=== PATIENT | male | born 1990 | race Caucasian/White ===

== ENCOUNTER 2021-10-26 10:24 | Emergency (ER) | payer OTHER ==
[2021-10-26 10:55] LABS: BASOPHILS % (AUTO) 0.5 %; HGB - HEMOGLOBIN 16.2 g/dL (14.0-18.0); LYMPHOCYTES # (AUTO) 2.2 10^3/uL (1.5-3.5); MEAN CORPUSCULAR HEMOGLOBIN 28.9 pg (27.0-31.0); MEAN CORPUSCULAR HGB CONC 35.2 g/dL (32.0-36.0); MEAN CORPUSCULAR VOLUME 82.1 fL (80.0-94.0); MEAN PLATELET VOLUME 10.8 fL (7.4-11.4); MONOCYTES # (AUTO) 0.5 10^3/uL (0.0-1.0); NEUTROPHILS # (AUTO) 5.2 10^3/uL (1.5-6.6); PLT - PLATELET COUNT 197 10^3/uL (130-450); RED CELL DISTRIBUTION WIDTH 12.9 % (12.0-15.0)
[2021-10-26 11:05] LABS: ALBUMIN 4.7 g/dL (3.2-5.5); ALBUMIN/GLOBULIN RATIO 1.3 (1.0-2.2); BILIRUBIN,TOTAL 0.7 mg/dL (0.2-1.0); CALCIUM 9.5 mg/dL (8.5-10.3); TOTAL PROTEIN 8.4 g/dL (6.7-8.2)
--- NOTE | 2021-10-26 11:05 | XRAY Report ---
PROCEDURE: Chest 1 View X-Ray INDICATIONS: Chest pain TECHNIQUE: One view of the chest was acquired. COMPARISON: None FINDINGS: Surgical changes and devices: None. Lungs and pleura: No pleural effusions or pneumothorax. Lungs are clear. Mediastinum: Mediastinal contours appear normal. Heart size is normal. Bones and chest wall: No suspicious bony lesions. Overlying soft tissues appear unremarkable. IMPRESSION: No acute cardiopulmonary disease. Reviewed by: Debora Iraheta MD on 10/26/2021 11:03 AM PDT Approved by: Debora Iraheta MD on 10/26/2021 11:03 AM PDT Station ID: [id number]
--- NOTE | 2021-10-26 11:53 | ED Physician Documentation ---
PD HPI DYSPNEA - Stated complaint Stated Complaint: CHEST PRESSURE/SOA - Chief complaint Chief Complaint: Cardiac - History obtained from History obtained from: Patient - History of Present Illness Timing - onset: How many days ago (some chest pressure and feeling dyspnea intermittently for few days, increased this morning getting ready for work.) Timing - onset during: Light activity Timing - duration: Hours (was more intense with pressure and feeling dyspnea and eased considerably but still some chest tightness/pressure here in ER.), Days (has had similar intermittent the past couple of days. No URI symptoms. No cough.) Timing - details: Gradual onset, Still present Inciting event(s): No: URI, Exercise, Immobilization/travel Improved by: No: Rest Associated symptoms: Chest pain / discomfort. No: Fever, Cough, Wheezing, Palpitations, Bilateral edema Similar symptoms before: Has not had sx before Recently seen: Not recently seen Review of Systems Constitutional: denies: Fever, Chills Nose: denies: Rhinorrhea / runny nose, Congestion Throat: denies: Sore throat Respiratory: denies: Cough Musculoskeletal: denies: Extremity swelling PD PAST MEDICAL HISTORY - Past Medical History Past Medical History: Yes Cardiovascular: None Respiratory: None Neuro: Migraines Endocrine/Autoimmune: None GI: None : None HEENT: None Psych: None Musculoskeletal: None Derm: None - Past Surgical History Past Surgical History: Yes HEENT: Tonsil/Adenoidectomy - Present Medications Home Medications: Ambulatory Orders Medication Instructions Recorded Confirmed Naproxen 500 mg PO BID #20 tab 10/26/21 SUMAtriptan [Imitrex] 25 mg PO DAILY PRN 10/26/21 10/26/21 - Allergies Allergies/Adverse Reactions: Allergies Allergy/AdvReac Type Severity Reaction Status Date / Time No Known Drug Allergies Allergy Verified 10/26/21 10:40 - Social History Does the pt smoke?: No Smoking Status: Never smoker Does the pt drink ETOH?: Yes Does the pt have substance abuse?: No - Immunizations Immunizations are current?: Yes PD ED PE NORMAL - Vitals Vital signs reviewed: Yes - General General: Alert and oriented X 3, No acute distress, Well developed/nourished - HEENT HEENT: Moist mucous membranes, Pharynx benign - Neck Neck: Supple, no meningeal sign, No adenopathy - Cardiac Cardiac: RRR, No murmur, No rub - Respiratory Respiratory: No respiratory distress, Clear bilaterally - Abdomen Abdomen: Soft, Non tender, No organomegaly - Derm Derm: Normal color, Warm and dry - Extremities Extremities: No edema, No calf tenderness / cord - Neuro Neuro: Alert and oriented X 3, No motor deficit, Normal speech Results - Vitals Vitals: Vital Signs - 24 hr 10/26/21 10/26/21 10/26/21 10:41 11:26 11:31 Temperature 37.4 C Heart Rate 96 83 84 Respiratory 24 15 Rate Blood Pressure 146/88 H 132/84 H O2 Saturation 97 97 97 10/26/21 10/26/21 10/26/21 12:00 12:26 12:30 Temperature Heart Rate 85 93 96 Respiratory 19 16 16 Rate Blood Pressure 138/95 H 144/96 H O2 Saturation 95 95 10/26/21 10/26/21 13:00 13:49 Temperature 36.6 C Heart Rate 83 83 Respiratory 28 H 21 Rate Blood Pressure 141/99 H 130/96 H O2 Saturation 94 97 Oxygen O2 Source Room air - EKG (time done) 10:35 Rate: Rate (enter#) (90) Rhythm: NSR [place]: Normal Intervals: Normal OR QRS: Normal Ischemia: Normal ST segments. No: ST elevation c/w ischemia, ST depression - Labs Labs: Laboratory Tests 10/26/21 10/26/21 10/26/21 10:47 10:47 10:47 WBC 8.0 RBC 5.60 Hgb 16.2 Hct 46.0 MCV 82.1 MCH 28.9 MCHC 35.2 RDW 12.9 Plt Count 197 MPV 10.8 Neut # (Auto) 5.2 Lymph # (Auto) 2.2 [place] # (Auto) 0.5 Eos # (Auto) 0.0 Baso # (Auto) 0.0 Absolute Nucleated RBC 0.00 Nucleated RBC % 0.0 Sodium 138 Potassium 4.0 Chloride 104 Carbon Dioxide 26 Anion Gap 8.0 BUN 10 Creatinine 1.0 Estimated GFR (MDRD) 87 L Glucose 100 Calcium 9.5 Total Bilirubin 0.7 AST 28 ALT 51 Alkaline Phosphatase 58 Troponin I High Sens 9.8 Total Protein 8.4 H Albumin 4.7 Globulin 3.7 Albumin/Globulin Ratio 1.3 Lipase 34 10/26/21 12:12 WBC RBC Hgb Hct MCV MCH MCHC RDW Plt Count MPV Neut # (Auto) Lymph # (Auto) [place] # (Auto) Eos # (Auto) Baso # (Auto) Absolute Nucleated RBC Nucleated RBC % Sodium Potassium Chloride Carbon Dioxide Anion Gap BUN Creatinine Estimated GFR (MDRD) Glucose Calcium Total Bilirubin AST ALT Alkaline Phosphatase Troponin I High Sens 8.8 Total Protein Albumin Globulin Albumin/Globulin Ratio Lipase - Rads (name of study) chest xray Radiology: Prelim report reviewed (no acute process), See rad report PD MEDICAL DECISION MAKING - ED course Complexity details: reviewed results, considered differential (unclear cause of symptoms. labs/ECG/CXR normal. PERC negative. Not improved with Mylanta nor Albuterol MDI. Presume possible inflammatory. ECG normal and no rub but could be pericardial. ), d/w patient Departure - Departure Disposition: 01 Home, Self Care Clinical Impression: Tightness in chest Condition: Stable Record reviewed to determine appropriate education?: Yes Instructions: ED Chest Pain Atypical Unkn Cause Follow-Up: KRISTOPHER Acuna [Provider Group] Prescriptions: Naproxen 500 mg PO BID #20 tab Comments: Your EKG, chest x-ray, blood tests are normal so no signs of heart failure, heart attack, pneumonia, fluid around the lungs, collapsed lung. He also did not have improvement with antacids so not sounding like heartburn/reflux. No change with the albuterol inhaler so less likely reactive airway disease or bronchial irritation. At this point not clear on the cause. Presume some inflammation into the chest area/chest wall. I would suggest anti-inflammatory such as naproxen or ibuprofen 2-3 times daily for the next 5 or 6 days. I did send a prescription to the [facility] for naproxen. Rest today and tomorrow off work and see how your symptoms are. I would anticipate improvement through the day and into tomorrow. Follow-up with the primary care if not improved over the next few days and return to the ER if worsening or other symptoms. This may be the beginning symptoms of a viral type illness so if you were to develop some chills fevers cough or sore throat in the next couple of days then that would actually make sense on the symptoms today and would not necessarily need to follow-up per se. Forms: Activity restrictions Discharge Date/Time: 10/26/21 13:55
[2021-10-26] MEDS ORDERED: ALBUTEROL 1 PUFF INH STA (12:06)
[2021-10-26] MEDS ORDERED: MAG HYDROX/AL HYDROX/SIMETH 30 ML UDC PO STA (12:06)
[2021-10-26] MEDS ORDERED: KETOROLAC 15 MG/ML VIAL IVP STA (12:36)
[2021-10-26 13:50] VITALS: BP 130/96
== END 2021-10-26 13:55 | disposition home or self-care (01) ==
LOC: ED 10:24
DX: R07.9 Chest pain, unspecified (principal)
CPT/HCPCS: 36415; 71045; 80053; 83690; 84484; 85025; 93005; 94640; 94664; 96374; 99283; 99284; A9270

== ENCOUNTER 2022-10-02 09:26 | Outpatient (CLI) | payer OTHER ==
--- NOTE | 2022-10-04 08:38 | MRI Report ---
PROCEDURE: LUMBAR SPINE WO INDICATIONS: RT LE WEAKNESS TECHNIQUE: Noncontrast sagittal T1 spin echo and T2 fast echo, sagittal STIR, axial T1 and T2 fast spin echo thr ough the lumbar spine. In cases with scoliosis, additional coronal T2 fast spin echo may be performe d. COMPARISON: None. FINDINGS: Image quality: Excellent. Alignment and Curvature: There is normal bony alignment. Bone Marrow: Marrow is of normal overall signal. No acute vertebral body compression fractures. Spinal Cord: Conus medullaris terminates at the L1-L2 level. Visualized cord demonstrates normal si gnal and size. Paraspinous Soft Tissues: No paravertebral masses. T12-L1: Normal in appearance. L1-L2: Normal in appearance. L2-L3: Normal in appearance. L3-L4: Mild facet hypertrophy. No canal stenosis or foraminal stenosis. L4-L5: Mild disc bulge. Facet hypertrophy. No canal stenosis or foraminal stenosis. L5-S1: Posterior annulus tear. Disc bulge. Facet hypertrophy. No canal stenosis or foraminal stenos is. IMPRESSION: 1. No canal stenosis or foraminal stenosis. 2. Multilevel facet arthropathy. 3. Disc bulge at L4-L5, annulus tear plus disc bulge at L5-S1. Reviewed by: Reid Marin MD on 10/04/2022 8:36 AM PDT Approved by: Reid Marin MD on 10/04/2022 8:36 AM PDT Station ID: [id number]
--- NOTE | 2022-10-04 12:10 | MRI Report ---
PROCEDURE: HIP WO - RT INDICATIONS: RT LE WEAKNESS TECHNIQUE: Noncontrast coronal T1 spin echo and STIR through the bony pelvis. Coronal and axial T2 fast spin ec ho with fat saturation, sagittal T1 spin echo, and oblique axial T2 fast spin echo with fat saturatio n through the hip. COMPARISON: None. FINDINGS: Image quality: Excellent. Bones and joints: Mild particular osteophyte formation at the right hip joint. There is mild, presum ably degenerative marrow edema within the right acetabulum and femoral neck. Bone marrow of the pelvi c ring and proximal femurs demonstrates otherwise normal signal throughout. No intraosseous lesions or fractures. No avascular necrosis of the femoral heads. The visualized lower lumbar spine appears normally aligned. There is a small right hip joint effusion which contains multiple intra-articular loose bodies. Femoral head/neck junction buttressing is present. Tendons: The gluteus medius and minimus tendons appear intact, without associated muscle atrophy. T he iliopsoas tendon appears intact, without adjacent bursal fluid collections. The origin of the ham string tendon is intact at the ischial tuberosity. Labrum and cartilage: There is diffuse undercutting of the right hip labrum. Cartilage surface of the femoral head appears of normal thickness. Soft tissues: Visualized muscles demonstrate normal bulk and internal signal. The proximal sciatic neurovascular bundle appears normal adjacent to the hamstring tendons. No free pelvic fluid. Bladde r wall thickness is normal. Genitourinary structures and bowel loops appear normal where visualized. IMPRESSION: 1. Right hip osteoarthritis associated with right hip labral tearing. 2. Right hip joint effusion with multiple intra-articular loose bodies. 3. Findings suggestive of femoral acetabular impingement. Reviewed by: Irma Berumen MD on 10/04/2022 12:09 PM PDT Approved by: Irma Berumen MD on 10/04/2022 12:09 PM PDT Station ID: [id number]
== END 2022-10-02 09:27 | disposition home or self-care (01) ==
LOC: DI 09:26
DX: M16.11 Unilateral primary osteoarthritis, right hip (principal); M25.451 Effusion, right hip; M24.051 Loose body in right hip; M47.816 Spondylosis without myelopathy or radiculopathy, lumbar region; M47.817 Spondylosis without myelopathy or radiculopathy, lumbosacral region; M51.36 Other intervertebral disc degeneration, lumbar region; M51.37 Other intervertebral disc degeneration, lumbosacral region

== ENCOUNTER 2022-12-01 19:07 | Outpatient (CLI) | payer OTHER | END 2022-12-01 19:08 | disposition home or self-care (01) | LOC: SC 19:07 | PROVIDERS: ATTEND Nurse Practitioner Family | DX: G47.33 Obstructive sleep apnea (adult) (pediatric) (principal); E66.9 Obesity, unspecified; Z68.38 Body mass index [BMI] 38.0-38.9, adult | CPT/HCPCS: 95810 ==

== ENCOUNTER 2023-03-04 14:41 | Outpatient (CLI) | payer OTHER ==
--- NOTE | 2023-03-04 14:35 | Sleep Patient Instructions ---
Sleep Center Visit Summary - Patient Visit Information Reason for Visit: First Compliance with PAP therapy - Patient Instructions Additional Instructions: You were here for follow up of CPAP therapy. You will be continued on CPAP therapy with pressure at 6-10 cmH2O. Please let us know if the pressure change is uncomfortable and we can make further adjustments of the pressure. I am sending a request for a mask fitting for a full face mask to your supplier. They should reach out to you to set this up. You should follow up with sleep care in 1-2 months. You may contact us sooner for any questions or concerns. - Clinic Information Contact: [facility] [address] [place] [id number] [email or web address] T: [phone]
[2023-03-04 14:41] VITALS: BP 140/95; O2SAT 97
--- NOTE | 2023-03-04 14:41 | SLEEP CARE CONSULTATION ---
Information from patient questionnaire entered by Melissa Jarrell. I have reviewed and concur with the information entered by Melissa Jarrell. This document represents the service I personally performed and the decisions made by , Keyla Jackson ARNP. History of Present Illness Service Date and Time: 03/04/2023 1420 Previous diagnosis: Mild, Obstructive Sleep Apnea-Hypopnea Syndrome AHI: 8.3 (11/2022) Reason for follow up: first compliance Equipment type: CPAP (ResMed Airsense 10, s/u 12/2022) Equipment obtained from: Other ([facility]) Mask style: Nasal Mask brand: Respironics ([place]) Backup mask available: No Last cushion change: no changes yet Prior sleep studies: No Type of Sleep Study: Polysomnography (COMPLETED 12/01/22) HPI additional information: FERNANDO MAHONEY was diagnosed to have mild, AHI 8.3, obstructive sleep apnea- hypopnea syndrome and returned today for CPAP therapy first compliance follow- up. Sleep Study - Results Type of Sleep Study: Polysomnography (COMPLETED 12/01/22) Prior sleep studies: No CPAP Compliance Data - Data Reviewed with Patient Average duration of nightly device use: 6 HRS 8 MINS Compliance rate %: 77 (01/03/23-02/01/23; days used in compliance period) Current pressure setting (cmH2O): 4-15 (median 6, avg 8.9, max 10.9) Average residual AHI: 0.6 Central apnea: 0 Obstructive apnea: 0.4 Average large leak: 0 L/min Subjective Patient concerns: reports: nasal congestion. denies: aerophagia, mask discomf ort, air blowing in eyes, mask leak noise, condensation in mask/hose, dry mouth, nose, throat, epistaxis Observed to snore while using device: No Current pressure setting perceived as: comfortable On therapy, patient: reports: sleeping better, awakening more refreshed, other (sleeping more solid through night; less wakeups). denies: drowsiness while driving Initial [place] Sleepiness Scale score: 16 (11/10/22) Current [place] Sleepiness Scale score: 12 (03/04/23) Allergies and Home Medications Known drug allergies: No Drug allergies reviewed: Yes Home medication list reviewed: Yes (no changes) Allergy and home medication list: Allergies No Known Drug Allergies Allergy (Verified 03/03/23 14:36) Review of Systems Review of systems same as previous: Yes (NO CHANGE) Physical Exam Vital signs obtained and entered by: MELISSA Hernandez MA Blood Pressure: 140/95 (RIGHT ARM) Cuff size: regular Heart Rate: 94 O2 Saturation: 97 Height: 5 ft 9 in Weight: 265 lb 9.6 oz Body Mass Index: 39.2 BMI Classification: Obese Impression and Plan 1. Obstructive Sleep Apnea-Hypopnea Syndrome, mild, with good treatment compliance and good apnea control. On CPAP therapy, the patient has better sleep quality and is more rested overall. Patient has significant improvement of their sleep apnea and is satisfied with current CPAP therapy. Patient has had some nasal congestion and I encouraged him to increase his humidity as this may be because his nose is a little bit dry. He states he would like to try a different style of mask. He saw a mask that covers his mouth and nose that he thought he might like better. I will write for a mask refitting for a full face mask. The patients pressure will be changed to autoCPAP 6-10 cmH20 to reflect pressure being used. Patient advised to contact me if pressure change is uncomfortable so that it can be adjusted. Goals for apnea control discussed. Patient's apnea severity and rationale for treatment to reduce apnea, improve sleep quality and reduce cardiovascular and cerebrovascular events was reviewed. I also reviewed the benefit of consistent device use of CPAP for hypertension and depression/anxiety. 2. Obesity, unspecified. Currently patients BMI is 39.2. Obesity increases the risk of apnea, CPAP pressure requirements and overall health risks especially cardiovascular and diabetes. Thus patient is advised to lose weight. * Change auto CPAP pressure to 6-10 cmH2O * Mask refitting for full face mask * Notify me if snoring with mask or feeling that the pressure is too much or too little * Attempt to lose weight * Call this office if any problems using CPAP * Return for follow up in 1-2 months, or sooner if concerns arise Adjust device pressure to (cmH2O): 6-10 Counseling Topics: Spare mask, Weight loss health impact Prescriptions: Other (Mask refitting) Follow up with Sleep Care in: 1-2 months Visit Type: In Office Time Spent with Patient (minutes): 23 Provider Statement: I spent 100% of the Face to Face Visit with the patient with greater than 50% spent counseling the patient and coordination of care.
== END 2023-03-04 14:42 | disposition home or self-care (01) ==
LOC: SC 14:41
PROVIDERS: ATTEND Nurse Practitioner Family
DX: G47.33 Obstructive sleep apnea (adult) (pediatric) (principal); E66.9 Obesity, unspecified; Z68.39 Body mass index [BMI] 39.0-39.9, adult
CPT/HCPCS: 99212; 99213

== ENCOUNTER 2023-05-01 07:23 | Outpatient (CLI) | payer OTHER ==
--- NOTE | 2023-05-01 13:01 | Ultrasound Report ---
PROCEDURE: Abdomen Limited INDICATIONS: OBESITY TECHNIQUE: Real-time focused scanning was performed of the abdomen, with image documentation. COMPARISONS: CT abdomen and pelvis dated 11/04/2022. FINDINGS: Liver: Mildly increased echogenicity of the liver is consistent with mild diffuse hepatic steatosis. A echogenic lesion in the right lobe is consistent with a hemangioma seen on the previous CT. It aurora sures 2.6 x 1.8 x 1.9 cm. Gallbladder: Unremarkable. Biliary ducts: Intrahepatic bile ducts are non-dilated. Extrahepatic bile duct caliber measures 4 m m. Normal is 6-7 mm or less in diameter, or 10 mm or less post-cholecystectomy. Pancreas: Visualized portions of the pancreas are sonographically normal. Right kidney: Normal in size and echotexture. Right kidney measures 9.8 cm long. No hydronephrosis o r nephrolithiasis. No solid masses. No complex renal cystic lesions which require follow-up. Aorta: Visualized aorta is normal in caliber at less than 3 cm. IVC: Intrahepatic inferior vena cava is patent. Miscellaneous: No free abdominal fluid. IMPRESSION: 1. Mild diffuse hepatic steatosis. 2. No gallstone disease. 3. Liver hemangioma, as seen on CT Reviewed by: Reid Marin MD on 05/01/2023 12:59 PM PDT Approved by: Reid Marin MD on 05/01/2023 12:59 PM PDT Station ID: [id number]
== END 2023-05-01 07:24 | disposition home or self-care (01) ==
LOC: DI 07:23
PROVIDERS: ATTEND Internal Medicine
DX: E66.9 Obesity, unspecified (principal); K76.0 Fatty (change of) liver, not elsewhere classified; D18.09 Hemangioma of other sites

== ENCOUNTER 2023-05-18 09:02 | Outpatient (CLI) | payer OTHER ==
--- NOTE | 2023-05-18 14:50 | Sleep Patient Instructions ---
Sleep Center Visit Summary - Patient Visit Information Reason for Visit: 2-month follow-up after pressure change - Patient Instructions Additional Instructions: You were here for follow up of CPAP therapy. You will be continued on CPAP therapy with pressure at 6-10 cmH2O. You should follow up with sleep care in 3 months. You may contact us sooner for any questions or concerns. - Clinic Information Contact: [facility] [address] [place] [id number] [email or web address] T: [phone]
--- NOTE | 2023-05-18 14:53 | SLEEP CARE CONSULTATION ---
Information from patient questionnaire entered by Melissa Jarrell. I have reviewed and concur with the information entered by Melissa Jarrell. This document represents the service I personally performed and the decisions made by me, Keyla Jackson ARNP. History of Present Illness Service Date and Time: 05/18/2023 09 Previous diagnosis: Mild, Obstructive Sleep Apnea-Hypopnea Syndrome AHI: 8.3 (11/2022) Reason for follow up: other (2 MONTH F/U) Equipment type: CPAP (ResMed Airsense 10, s/u 12/2022) Equipment obtained from: Other ([facility]; getting supplies) Mask style: Nasal (over the nose) Mask brand: Respironics ([place]) Backup mask available: Yes (other mask) Last cushion change: over a month Prior sleep studies: No Type of Sleep Study: Polysomnography (COMPLETED 12/01/22) HPI additional information: FERNANDO MAHONEY was diagnosed to have mild, AHI 7.1, obstructive sleep apnea- hypopnea syndrome and returned today for CPAP therapy two month with pressure change follow-up. Sleep Study - Results Type of Sleep Study: Polysomnography (COMPLETED 12/01/22) Prior sleep studies: No CPAP Compliance Data - Data Reviewed with Patient Average duration of nightly device use: 5 HRS 44 MINS Compliance rate %: 75 (03/19/23-05/17/23; 51/60 days used) Current pressure setting (cmH2O): 6-10 Average residual AHI: 0.2 Central apnea: 0 Obstructive apnea: 0.1 Average large leak: 0.1 L/min Subjective Missed days of use due to: reports: illness (upper respiratory illness) Patient concerns: denies: aerophagia, mask discomfort, air blowing in eyes, mask leak noise, condensation in mask/hose, nasal congestion, dry mouth, nose, throat, epistaxis Observed to snore while using device: No Current pressure setting perceived as: comfortable On therapy, patient: reports: sleeping better, awakening more refreshed, being more awake and alert during the day, more rested overall. denies: drowsiness while driving Initial [place] Sleepiness Scale score: 16 (11/10/22) Current [place] Sleepiness Scale score: 8 (05/18/23) Allergies and Home Medications Known drug allergies: No Drug allergies reviewed: Yes Home medication list reviewed: Yes (Metformin) Allergy and home medication list: Allergies No Known Drug Allergies Allergy (Verified 04/29/23 14:31) Review of Systems Review of systems same as previous: No (PRE DIABETIC) Physical Exam Vital signs obtained and entered by: MELISSA Hernandez MA Blood Pressure: 137/96 (LEFT ARM) Cuff size: regular Heart Rate: 98 O2 Saturation: 99 Height: 5 ft 9 in Weight: 260 lb Body Mass Index: 38.4 BMI Classification: Obese Impression and Plan 1. Obstructive Sleep Apnea-Hypopnea Syndrome, mild, with good treatment compliance and good apnea control. On CPAP therapy, the patient has better sleep quality and is more rested overall. Patient is doing well with using his CPAP. His only limitation was when he had a upper respiratory illness that limited his ability to wear the mask comfortably. He has significant improvement of his sleep apnea and is satisfied with current therapy. Patient denies problems with oral dryness, nasal congestion, epistaxis, skin irritation or aerophagia. Patient's apnea severity and rationale for treatment to reduce apnea, improve sleep quality and reduce cardiovascular and cerebrovascular events was reviewed. I also reviewed the benefit of consistent device use of CPAP for hypertension, depression/anxiety. 2. Obesity, unspecified. Currently patients BMI is 38.4. Obesity increases the risk of apnea, CPAP pressure requirements and overall health risks especially cardiovascular and diabetes. Thus patient is advised to lose weight. * Continue auto CPAP pressure at 6-10 cmH2O * Notify me if snoring with mask or feeling that the pressure is too much or too little * Attempt to lose weight * Call this office if any problems using CPAP * Return for follow up in 3 months, or sooner if concerns arise Counseling Topics: Weight loss health impact Follow up with Sleep Care in: 3 months Visit Type: In Office Time Spent with Patient (minutes): 20 Provider Statement: I spent 100% of the Face to Face Visit with the patient with greater than 50% spent counseling the patient and coordination of care.
[2023-05-18 14:55] VITALS: BP 137/96; O2SAT 99
== END 2023-05-18 09:03 | disposition home or self-care (01) ==
LOC: SC 09:02
PROVIDERS: ATTEND Nurse Practitioner Family
DX: G47.33 Obstructive sleep apnea (adult) (pediatric) (principal); E66.9 Obesity, unspecified; Z68.38 Body mass index [BMI] 38.0-38.9, adult
CPT/HCPCS: 99212; 99213

== ENCOUNTER 2023-08-23 14:44 | Outpatient (CLI) | payer OTHER ==
--- NOTE | 2023-08-23 15:08 | Sleep Patient Instructions ---
Sleep Center Visit Summary - Patient Visit Information Reason for Visit: 3-month follow-up - Patient Instructions Additional Instructions: You were here for follow up of CPAP therapy. You will be continued on CPAP therapy with pressure at 6-10 cmH2O. You should follow up with sleep care in 6 months. You may contact us sooner for any questions or concerns. - Clinic Information Contact: [facility] [address] [place] [address] [email or web address] T: [phone]
--- NOTE | 2023-08-23 15:12 | SLEEP CARE CONSULTATION ---
Information from patient questionnaire entered by Naomi Jarrell. I have reviewed and concur with the information entered by Naomi Jarrell. This document represents the service I personally performed and the decisions made by , Keyla Jackson ARNP. History of Present Illness Service Date and Time: 08/23/2023 1444 Previous diagnosis: Mild, Obstructive Sleep Apnea-Hypopnea Syndrome AHI: 8.3 (11/2022) Reason for follow up: three month Equipment type: CPAP (ResMed Airsense 10, s/u 12/2022) Equipment obtained from: Other ([facility]; getting supplies) Mask style: Full face Backup mask available: Yes Last cushion change: last month Prior sleep studies: No Type of Sleep Study: Polysomnography (COMPLETED 12/01/22) HPI additional information: FERNANDO MAHONEY was diagnosed to have mild, AHI 8.3, obstructive sleep apnea- hypopnea syndrome and returned today for CPAP therapy three month follow-up. Sleep Study - Results Type of Sleep Study: Polysomnography (COMPLETED 12/01/22) Prior sleep studies: No CPAP Compliance Data - Data Reviewed with Patient Average duration of nightly device use: 5 HRS 39 MINS Compliance rate %: 59 (05/21/23-08/18/23; 64/90 days used) Current pressure setting (cmH2O): 6-10 Average residual AHI: 0.4 Central apnea: 0 Obstructive apnea: 0.3 Hypopnea: 0.1 Average large leak: 0.2 L/min Subjective Missed days of use due to: reports: mask issues, illness (upper respiratory), other (mask irritating and takes mask off) Patient concerns: reports: dry mouth, nose, throat (dry mouth, occasionally if forgets to put water in chamber). denies: aerophagia, mask discomfort, air blowing in eyes, mask leak noise, condensation in mask/hose, nasal congestion, epistaxis Observed to snore while using device: No Current pressure setting perceived as: comfortable On therapy, patient: reports: sleeping better, awakening more refreshed, being more awake and alert during the day, more rested overall. denies: drowsiness while driving Initial [place] Sleepiness Scale score: 16 (11/10/22) Current [place] Sleepiness Scale score: 8 Allergies and Home Medications Known drug allergies: No Drug allergies reviewed: Yes Home medication list reviewed: Yes (Metformin, Trulicity) Allergy and home medication list: Allergies No Known Drug Allergies Allergy (Verified 08/19/23 11:16) Review of Systems Review of systems same as previous: No (Vasectomy) Physical Exam Vital signs obtained and entered by: KEYLA SWIFT Blood Pressure: 143/79 Cuff size: long (right arm) Heart Rate: 97 O2 Saturation: 96 Height: 5 ft 9 in Weight: 259 lb (with boots on) Body Mass Index: 38.2 BMI Classification: Obese Impression and Plan 1. Obstructive Sleep Apnea-Hypopnea Syndrome, mild, with fair treatment compliance and good apnea control. On CPAP therapy, the patient has better sleep quality and is more rested overall. He has significant improvement of his sleep apnea and is comfortable with CPAP use. His current mask is a fullface but sometimes when it shifts on his nose it blocks his nares. He would like to try the [employer] Vitera mask that he saw in the waiting room. I will write for a mask refitting for this mask and see if he can try this style for better comfort. We discussed compliance since it has reduced since his last visit. He was encouraged to try and keep the mask on for at least 4 hours and hopefully a change in mask follow-up comfortable and easier to leave on all night. Patient's apnea severity and rationale for treatment to reduce apnea, improve sleep quality and reduce cardiovascular and cerebrovascular events was reviewed. I also reviewed the benefit of consistent device use of CPAP for hypertension, depression/anxiety. 2. Obesity, unspecified. Currently patients BMI is 38.2. Obesity increases the risk of apnea, CPAP pressure requirements and overall health risks especially cardiovascular and diabetes. Thus patient is advised to lose weight. * Continue auto CPAP pressure at 6-10 cmH2O * Mask refitting for F&P Vitera full face mask * Notify me if snoring with mask or feeling that the pressure is too much or too little * Attempt to lose weight * Call this office if any problems using CPAP * Return for follow up in 6 months, or sooner if concerns arise Counseling Topics: Spare mask, Weight loss health impact Prescriptions: Other (Mask refitting for F&P Vitera full face mask) Follow up with Sleep Care in: 6 months Visit Type: In Office Time Spent with Patient (minutes): 22 Provider Statement: I spent 100% of the Face to Face Visit with the patient with greater than 50% spent counseling the patient and coordination of care.
[2023-08-23 15:18] VITALS: BP 143/79; O2SAT 96
== END 2023-08-23 14:45 | disposition home or self-care (01) ==
LOC: SC 14:44
PROVIDERS: ATTEND Nurse Practitioner Family
DX: G47.33 Obstructive sleep apnea (adult) (pediatric) (principal)
CPT/HCPCS: 99212; 99213

== ENCOUNTER 2023-09-20 18:25 | Emergency (ER) | payer OTHER ==
[2023-09-20] MEDS: METOPROLOL TARTRATE 50 MG TABLET PO STA (18:53)
[2023-09-20] MEDS: SODIUM CHLORIDE 0.9% 1,000 ML IV STA ×2 (18:54→21:01)
[2023-09-20 18:56] LABS: BASOPHILS % (AUTO) 0.4 %; HCT - HEMATOCRIT 48.9 % (42.0-52.0); HGB - HEMOGLOBIN 16.3 g/dL (14.0-18.0); LYMPHOCYTES # (AUTO) 2.3 10^3/uL (1.5-3.5); LYMPHOCYTES % (AUTO) 21.7 %; MEAN CORPUSCULAR HEMOGLOBIN 28.8 pg (27.0-31.0); MEAN CORPUSCULAR HGB CONC 33.3 g/dL (32.0-36.0); MEAN CORPUSCULAR VOLUME 86.4 fL (80.0-94.0); MEAN PLATELET VOLUME 11.2 fL (7.4-11.4); MONOCYTES # (AUTO) 0.7 10^3/uL (0.0-1.0); MONOCYTES % (AUTO) 6.2 %; NEUTROPHILS # (AUTO) 7.5 10^3/uL (1.5-6.6); NEUTROPHILS % (AUTO) 71.2 %; RED BLOOD COUNT 5.66 10^6/uL (4.70-6.10); RED CELL DISTRIBUTION WIDTH 13.7 % (12.0-15.0); SLIDE REVIEW? Indicated; WHITE BLOOD COUNT 10.5 x10^3/uL (4.8-10.8)
--- NOTE | 2023-09-20 18:57 | ED Physician Documentation ---
History of Present Illness - Stated complaint Stated Complaint: CHEST PX - Chief complaint Chief Complaint: Cardiac - History obtained from History obtained from: Patient - Additonal information Additional information: The patient comes to the emergency department chief complaint of chest pain, heart racing, sweating, shortness of breath, and nausea that started about 2 hours ago. He states that it has happened once before and he was told he had anxiety. He states he had blood work, EKG, and chest x-ray done at that time but did not have any further cardiac testing. He was started on sertraline and as needed hydroxyzine and states his anxiety has been under fairly good control since. He has a history of hypertension otherwise but no other medical problems. He states that he did vomit once after the symptoms began but that he is not vomited anymore since. He states the nausea is still there as is the chest pain, but it is not as bad as it was. The patient denies any known history of coronary artery disease. He states that he has never been diagnosed with a DVT or PE or any thyroid problems. No history of DVT or PE in the family. The patient is not a smoker. He denies any recent heavy alcohol use or any drug use. No recent changes in his medications or their doses. He has been drinking what he feels is an adequate amount of water every day. He has not been ill recently and was feeling fine prior to onset of the symptoms. He does note that he has been under a lot of stress lately. No other complaints at this time. PD PAST MEDICAL HISTORY - Past Medical History Past Medical History: Yes Cardiovascular: Hypertension Respiratory: None Neuro: Migraines Endocrine/Autoimmune: None GI: None : None HEENT: None Psych: None Musculoskeletal: None Derm: None - Past Surgical History Past Surgical History: Yes HEENT: Tonsil/Adenoidectomy - Present Medications Home Medications: Ambulatory Orders Medication Instructions Recorded Confirmed Lisinopril [Zestril] 30 mg PO DAILY 11/04/22 05/18/23 Sertraline HCl 100 mg PO DAILY 11/04/22 05/18/23 metFORMIN [Glucophage] See Rx Instructions .ROUTE .COMPLEX 05/18/23 05/18/23 - Allergies Allergies/Adverse Reactions: Allergies Allergy/AdvReac Type Severity Reaction Status Date / Time No Known Drug Allergies Allergy Verified 09/20/23 18:29 - Social History Does the pt smoke?: No Smoking Status: Never smoker Does the pt drink ETOH?: Yes Does the pt have substance abuse?: No - Immunizations Immunizations are current?: Yes - POLST Patient has POLST: No PD ED PE NORMAL - Vitals Vital signs reviewed: Yes - General General: Alert and oriented X 3, No acute distress, Well developed/nourished - HEENT HEENT: Atraumatic, EOMI, Moist mucous membranes - Neck Neck: Supple, no meningeal sign - Cardiac Cardiac: No murmur, Strong equal pulses, Other (Tachycardic regular rhythm.) - Respiratory Respiratory: No respiratory distress, Clear bilaterally - Abdomen Abdomen: Soft, Non tender, Non distended - Derm Derm: Normal color, Warm and dry, No rash - Extremities Extremities: No deformity, No edema, No calf tenderness / cord - Neuro Neuro: Other (Alert, grossly intact.) - Psych Psych: Normal mood, Normal affect Results - Vitals Vitals: Vital Signs - 24 hr 09/20/23 09/20/23 09/20/23 18:29 18:43 18:50 Temperature 36.8 C Heart Rate 130 H 120 H Respiratory 16 19 Rate Blood Pressure 100/58 L 111/77 Blood Pressure 82/65 L [Left] O2 Saturation 100 95 09/20/23 09/20/23 09/20/23 19:31 20:00 20:30 Temperature Heart Rate 113 H 100 104 H Respiratory 20 20 22 Rate Blood Pressure 102/70 112/75 122/69 Blood Pressure [Left] O2 Saturation 92 98 98 09/20/23 09/20/23 09/20/23 21:00 21:30 22:05 Temperature Heart Rate 98 91 81 Respiratory 20 21 16 Rate Blood Pressure 110/70 116/67 116/71 Blood Pressure [Left] O2 Saturation 99 96 97 09/20/23 22:29 Temperature Heart Rate 82 Respiratory 16 Rate Blood Pressure 119/80 Blood Pressure [Left] O2 Saturation 98 Oxygen O2 Source Room air - EKG (time done) 1834 EKG releavant findings:: EKG personally interpreted by author of this note. Relevant findings are: Rate: Rate (enter#) (141) Rhythm: Sinus tachycardia, LAE [place]: Normal Intervals: Normal [place] QRS: Normal Ischemia: Normal ST segments Compare to prior EKG: Old EKG unavailable Computer interpretation: Agree with computer - Labs Labs: Laboratory Tests 09/20/23 09/20/23 09/20/23 18:46 18:46 18:46 WBC 10.5 RBC 5.66 Hgb 16.3 Hct 48.9 MCV 86.4 MCH 28.8 MCHC 33.3 RDW 13.7 Plt Count MPV 11.2 Neut # (Auto) 7.5 H Lymph # (Auto) 2.3 [place] # (Auto) 0.7 Eos # (Auto) 0.0 Baso # (Auto) 0.0 Absolute Nucleated RBC 0.00 Nucleated RBC % 0.0 Manual Slide Review Indicated Platelet Estimate NORMAL (130-450,000) Platelet Morphology PLATELET CLUMPING RBC Morph Micro Appear NORMAL APPEARANCE D-Dimer Sodium 138 Potassium 4.1 Chloride 99 L Carbon Dioxide 27 Anion Gap 12.0 BUN 21 H Creatinine 1.8 H Estimated GFR (MDRD) 43 L Glucose 124 H Lactic Acid 1.5 Calcium 10.8 H Total Bilirubin 0.7 AST 21 ALT 34 Alkaline Phosphatase 53 Troponin I High Sens 9.5 Total Protein 8.2 Albumin 5.3 Globulin 2.9 Albumin/Globulin Ratio 1.8 Lipase 39 TSH 2.65 Urine Opiates Screen Ur Buprenorphine Scrn Ur Oxycodone Screen Urine Methadone Screen Ur Barbiturates Screen Ur Tricyclics Screen Ur Phencyclidine Scrn Ur Amphetamine Screen U Methamphetamines Scrn U Benzodiazepines Scrn Urine Cocaine Screen U Cannabinoids Screen Ur Drug Screen Comment Ethyl Alcohol < 10.0 09/20/23 09/20/23 09/20/23 18:46 20:36 20:53 WBC RBC Hgb Hct MCV MCH MCHC RDW Plt Count MPV Neut # (Auto) Lymph # (Auto) [place] # (Auto) Eos # (Auto) Baso # (Auto) Absolute Nucleated RBC Nucleated RBC % Manual Slide Review Platelet Estimate Platelet Morphology RBC Morph Micro Appear D-Dimer 277.9 H Sodium Potassium Chloride Carbon Dioxide Anion Gap BUN Creatinine Estimated GFR (MDRD) Glucose Lactic Acid Calcium Total Bilirubin AST ALT Alkaline Phosphatase Troponin I High Sens 10.5 Total Protein Albumin Globulin Albumin/Globulin Ratio Lipase TSH Urine Opiates Screen NEGATIVE Ur Buprenorphine Scrn NEGATIVE Ur Oxycodone Screen NEGATIVE Urine Methadone Screen NEGATIVE Ur Barbiturates Screen NEGATIVE Ur Tricyclics Screen NEGATIVE Ur Phencyclidine Scrn NEGATIVE Ur Amphetamine Screen NEGATIVE U Methamphetamines Scrn NEGATIVE U Benzodiazepines Scrn NEGATIVE Urine Cocaine Screen NEGATIVE U Cannabinoids Screen NEGATIVE Ur Drug Screen Comment CUTOFF CONC BELOW: Ethyl Alcohol - Rads (name of study) chest XR Relevant Findings:: Final report received, See rad report (neg) CTA chest Relevant Findings:: Final report received, See rad report (neg) PD Medical Decision Making - ED course Complexity details: reviewed results, re-evaluated patient, considered differential, d/w patient ED course: The patient was hypotensive initially upon arrival but quickly normalized. His heart rate was in the 140s and appeared to be sinus tachycardia on his EKG, but when I went to see him immediately upon being placed in a room, his heart rate was down in the 110's to 120s. The patient on paper was fairly low risk for coronary artery disease and DVT/PE but nonetheless, given his symptoms, I did initiate a broad workup including, along with EKG, chest x-ray, laboratory studies with troponin, D-dimer, and TSH, as well as tox screens. The patient was started on a liter of IV fluid and given a dose of p.o. metoprolol and IV Valium. His workup was negative except for a decreased GFR at 45, with elevated BUN at 21 and creatinine of 1.8. He also had an elevated D-dimer at 277. Because of this, a CTA of the chest was performed and found to be negative. Serial troponins were also normal and without significant rise. His TSH was also normal. I discussed the findings with the patient and that he does need to follow-up for his elevated creatinine, which is out of sync with his BUN and concerning for primary problem with his kidneys. We have also discussed that the patient may need to follow-up with his primary doctor to discuss his antianxiety regimen, should he have these episodes more frequently. The patient's heart rate had come down into the 80s to 90s with normal sinus rhythm after treatment with 2 L of 0.9 normal saline. His blood pressure was normal and he reported feeling little better although he still did some pain reproducible with deep breaths on his chest. I ordered a dose of Toradol for him for this. The patient stable for discharge. We have discussed the usual indications for return. Departure - Departure Disposition: 01 Home, Self Care Clinical Impression: Tachycardia, Renal insufficiency, Panic attack, Chest wall pain Condition: Stable Instructions: ED Chest Pain Costochondritis, ED Panic Attack, ED Insufficiency Renal Comments: Extensive workup tonight has not revealed a serious or emergent cause of your chest pain and elevated heart rate. You responded very well to 2 L of IV fluids during the time that you have been here, as well as to medication for anxiety and for your elevated heart rate. 2 sets of cardiac enzymes revealed no evidence of a heart attack. Your EKG other than showing a fast heart rate looked fairly good. The blood test that we checked to determine whether you might have a blood clot was somewhat elevated and while this can be caused by a number of different things, most of which are not of concern, the chest pain and elevated heart rate in the setting called for CT scan of the chest. This was done and did not show any blood clot or any other problem with the large vessels that go to and from your heart. Additionally, no abnormalities were found in your lungs. At this point in time, we have not found a serious or emergent cause of your symptoms. It is possible that this has been caused by a panic attack and if you have repeated episodes like this, you will need to talk to your primary doctor about adjusting your medication regimen. You should also discuss with your doctor the possibility of referral to cardiology, should you have further episodes like this. As far as the pain in your chest, it is most consistent with muscle spasm chest wall, given that when you take a deep breath it makes it chest pain worse. You can take ibuprofen and Tylenol as needed for this. One other thing to discuss with your doctor when you do see him or her is that your kidney function appears to have slowed in the last year. While some of this seems to be from a little bit of dehydration, it cannot account for the entirety of the lab abnormality, and it is important that you have these numbers rechecked to see how your kidney function is doing. Forms: PCP List, Activity restrictions Discharge Date/Time: 09/20/23 22:31
--- NOTE | 2023-09-20 19:11 | XRAY Report ---
PROCEDURE: Chest 1V INDICATIONS: Chest pain TECHNIQUE: One view of the chest was acquired. COMPARISON: 10/26/2021. FINDINGS: Surgical changes and devices: None. Lungs and pleura: No pleural effusions or pneumothorax. Mild pulmonary vascular congestion is seen. No definite focal infiltrate. Mediastinum: Mediastinal contours appear normal. Heart size is normal. Bones and chest wall: No suspicious bony lesions. Overlying soft tissues appear unremarkable. IMPRESSION: Mild congestion. No definite focal infiltrate. No pleural effusion or pneumothorax. Reviewed by: Navid Pastrana MD on 09/20/2023 7:09 PM PDT Approved by: Navid Pastrana MD on 09/20/2023 7:09 PM PDT Station ID: [id number]
[2023-09-20 19:14] LABS: ALBUMIN 5.3 g/dL (3.2-5.5); ALBUMIN/GLOBULIN RATIO 1.8 (1.0-2.2); ALKALINE PHOSPHATASE 53 IU/L (42-121); ALT ALANINE AMINOTRANSFERASE 34 IU/L (10-60); AST ASPARTATE AMINOTRANSFERASE 21 IU/L (10-42); BILIRUBIN,TOTAL 0.7 mg/dL (0.2-1.0); BUN - BLOOD UREA NITROGEN 21 mg/dL (6-20); CALCIUM 10.8 mg/dL (8.5-10.3); CARBON DIOXIDE - CO2 27 mmol/L (21-32); CHLORIDE 99 mmol/L (101-111); CREATININE 1.8 mg/dL (0.6-1.3); ETOH - ETHANOL < 10.0 mg/dL; GFR - MDRD 43 (>89); GLUCOSE 124 mg/dL (74-104); LIPASE 39 U/L (11-82); POTASSIUM 4.1 mmol/L (3.5-4.5); SODIUM 138 mmol/L (135-145); TOTAL PROTEIN 8.2 g/dL (6.4-8.9)
[2023-09-20 19:16] LABS: TROPONIN I HIGH SENSITIVITY 9.5 ng/L (2.3-19.7)
[2023-09-20 19:25] LABS: THYROID STIMULATING HORMONE 2.65 uIU/mL (0.34-5.60)
[2023-09-20 19:27] LABS: RBC MORPHOLOGY (MULTIPLE) NORMAL APPEARANCE (NORMAL)
[2023-09-20 19:28] LABS: PLATELET ESTIMATE, MANUAL NORMAL (130-450,000) (NORMAL); PLATELET MORPHOLOGY PLATELET CLUMPING (NORMAL)
[2023-09-20] MEDS: diazePAM INJ 5 MG/ML SYRINGE IVP STA (19:34)
[2023-09-20] MEDS ORDERED: iohexoL-300 100 ML VIAL ONE (20:49)
[2023-09-20] MEDS: iohexoL-300 100 ML VIAL IVP ONE (21:01)
[2023-09-20 21:16] LABS: AMPHETAMINE SCREEN,URINE NEGATIVE (NEGATIVE); BARBITURATE SCREEN,UR NEGATIVE (NEGATIVE); BENZODIAZEPINES SCREEN, URINE NEGATIVE (NEGATIVE); BUPRENORPHINE SCREEN, URINE NEGATIVE (NEGATIVE); COCAINE SCREEN URINE NEGATIVE (NEGATIVE); METHADONE SCREEN, URINE NEGATIVE (NEGATIVE); METHAMPHETAMINES SCREEN, URINE NEGATIVE (NEGATIVE); OPIATE SCREEN, URINE NEGATIVE (NEGATIVE); OXYCODONE SCREEN, URINE NEGATIVE (NEGATIVE); THC CANNABINOID SCREEN, URINE NEGATIVE (NEGATIVE); TRICYCLIC ANTIDEPRESSANT,URINE NEGATIVE (NEGATIVE)
--- NOTE | 2023-09-20 21:17 | CT Report ---
PROCEDURE: Angio Chest INDICATIONS: chest pain, tachycardia, elev d-dimer CONTRAST: 80ml [id number] TECHNIQUE: After the administration of intravenous contrast, 2 mm axial images were acquired from the pulmonary apices to the posterior costophrenic angles during the arterial phase. In addition, 1 mm lung kernel and 5 mm soft tissue kernel reconstructions were performed. 3-dimensional coronal oblique maximum int ensity projection (MIP) reformats, 8 mm axial MIP, and 5 mm coronal and sagittal MPR reformats were t hen performed through the thorax. For radiation dose reduction, the following was used: automated exp osure control, adjustment of mA and/or kV according to patient size. COMPARISON: CXR earlier today. FINDINGS: Image quality: Excellent. Large vessels: No filling defects within the opacified pulmonary arteries, accounting for motion and contrast timing. No evidence of acute aortic syndrome or aortic aneurysm. Lungs and pleura: No consolidation. No pleural effusions. No pneumothorax. No suspicious pulmonary no dules which require follow up. Right lower lobe costophrenic granuloma. Mediastinum: Heart size is normal. No pericardial effusion. No large vessel abnormality. No mediastin al adenopathy by size criteria. Chest wall and lower neck: Thyroid is unremarkable. No axillary or supraclavicular adenopathy by size . Bones: No aggressive osseous abnormality. Upper Abdomen: Unremarkable. IMPRESSION: No pulmonary embolus. No acute airspace opacity. Reviewed by: Jamie Rain MD on 09/20/2023 9:16 PM PDT Approved by: Jamie Rain MD on 09/20/2023 9:16 PM PDT Station ID: [id number]
[2023-09-20] MEDS: KETOROLAC 30 MG/ML VIAL IVP STA (22:21)
[2023-09-20 22:40] VITALS: BP 119/80; O2SAT 98
== END 2023-09-20 22:31 | disposition home or self-care (01) ==
LOC: ED 18:25
DX: R07.89 Other chest pain (principal); R00.0 Tachycardia, unspecified; F41.0 Panic disorder [episodic paroxysmal anxiety]; I95.9 Hypotension, unspecified; I49.3 Ventricular premature depolarization; N28.9 Disorder of kidney and ureter, unspecified; I10 Essential (primary) hypertension
CPT/HCPCS: 36415; 71045; 71275; 80053; 80306; 82077; 83605; 83690; 84443; 84484; 85025; 85379; 93005; 96361; 96374; 96375; 99284; A9270; Q9967